=== PATIENT | male | born 1940 | race Caucasian/White ===

== ENCOUNTER 2018-01-27 15:24 | Outpatient (CLI) | payer MEDICARE | END 2018-01-27 15:25 | disposition home or self-care (01) | LOC: BICRAD 15:24 | PROVIDERS: ATTEND Specialist | DX: M54.5 Low back pain (principal); M47.896 Other spondylosis, lumbar region | CPT/HCPCS: 72100 ==

== ENCOUNTER 2018-02-26 11:48 | Outpatient (CLI) | payer MEDICARE ==
--- NOTE | 2018-02-26 15:15 | CT ---
CT OF THE LUMBAR SPINE WITHOUT CONTRAST: INDICATION: History of back pain; patient reportedly stepped in a hole years ago and injured his back and has had back pain since. The patient is reporting some tingling and numbness along the bilateral aspect of the lower back. COMPARISON: Prior CT of the abdomen and pelvis dated 10/08/2010. FINDINGS: There is advanced degenerative disk disease at L4-5 and L5-S1 with vacuum disk phenomenon which can b e seen with disk instability. No acute fracture is evident. There are vascular calcifications seen involving the abdominopelvic vasculature. No lymphadenopathy is evident. No free fluid is identifie d. 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 At the L5-S1 level, there is a broad-based disk-osteophyte complex with loss of disk space height in addition to facet hypertrophy inducing at least moderate neural foraminal narrowing, left greater amy n right. At the L4-5 level, there is a broad-based disk-osteophyte complex with facet hypertrophy and loss of disk space height inducing severe bilateral neural foraminal narrowing. There is also suspected at l east moderate central canal narrowing at this level. There is likely a cephalad extending left parac entral disk extrusion containing some vacuum phenomenon best seen on image 52 of series 2. At L3-4, there is a broad-based bulge with facet hypertrophy and ligamentum flavum hypertrophy likely inducing at least moderate central canal narrowing with at least moderate bilateral neural foraminal narrowing. At L2-3, there is a broad-based bulge with facet hypertrophy inducing at least mild to moderate centr al canal narrowing with mild to moderate bilateral neural foraminal narrowing. At L1-L2, there is a broad-based bulge with facet hypertrophy. There is likely some vacuum disk phen omenon within the left L1-2 facet complex. There is a broad-based bulge. Constellation of findings induces mild bilateral neural foraminal narrowing, left greater than right. T12-L1, there is no appreciable osseous central canal or neural foraminal narrowing. IMPRESSION: Multilevel spondylosis of the lumbar spine with multilevel central canal or neural foraminal narrowin g as detailed above. POS: DEBRA
== END 2018-02-26 11:49 | disposition home or self-care (01) ==
LOC: BICCT 11:48
PROVIDERS: ATTEND Specialist
DX: M54.9 Dorsalgia, unspecified (principal); M47.896 Other spondylosis, lumbar region
CPT/HCPCS: 72131

== ENCOUNTER 2025-01-26 08:06 | Outpatient (CLI) | payer MEDICARE ==
[2025-01-26 09:06] LABS: Estimated GFR - POC 46.0
[2025-01-26] MEDS ORDERED: Iopamidol 370 76% 100 ML VIAL ONE (10:52)
== END 2025-01-26 08:07 | disposition home or self-care (01) ==
LOC: CT 08:06
PROVIDERS: ATTEND Internal Medicine Gastroenterology
DX: R10.33 Periumbilical pain (principal); K59.09 Other constipation; R63.4 Abnormal weight loss; K86.9 Disease of pancreas, unspecified; N28.1 Cyst of kidney, acquired; N40.0 Benign prostatic hyperplasia without lower urinary tract symptoms
CPT/HCPCS: 36000; 36415; 74177; 82565; Q9967

== ENCOUNTER 2025-03-09 10:34 | Outpatient (CLI) | payer MEDICARE ==
[2025-03-10 15:03] LABS: Estimated GFR - POC 50.0
== END 2025-03-09 10:35 | disposition home or self-care (01) ==
LOC: MRI 10:34
PROVIDERS: ATTEND Internal Medicine Gastroenterology
DX: G20.C Parkinsonism, unspecified (principal); K59.09 Other constipation; K86.9 Disease of pancreas, unspecified; R10.33 Periumbilical pain; F02.80 Dementia in other diseases classified elsewhere, unspecified severity, without behavioral disturbance, psychotic disturbance, mood disturbance, and anxiety; G31.09 Other frontotemporal neurocognitive disorder; K86.2 Cyst of pancreas; N28.1 Cyst of kidney, acquired
CPT/HCPCS: 36415; 70551; 74183; 76014; 82565